=== PATIENT | female | born 2000 | race Caucasian/White ===

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

== ENCOUNTER 2023-08-21 15:00 | Emergency (ER) | payer BC, OTHER ==
[~2023-08-21] VITALS: Ht 162.6 cm; Wt 50.8 kg
[~2023-08-21 15:00] MED LIST: IBUP-1842 PO
[2023-08-21 15:13] VITALS: BP 122/85; PULSE 89; RESP 18; TEMP 98; O2SAT 100
[2023-08-21 16:54] LABS: FLU A ANTIGEN negative (NEGATIVE)
[2023-08-21 16:55] LABS: FLU B ANTIGEN NEGATIVE (NEGATIVE)
[2023-08-21 17:31] LABS: BASOPHILS % (AUTO) 0.5 % (0.0-2.0); EOSINOPHILS # (AUTO) 0.1 K/uL (0-0.4); HEMOGLOBIN 13.3 g/dL (12.0-16.0); LYMPHOCYTES # (AUTO) 2.3 K/uL (2.5-16.5); LYMPHOCYTES % (AUTO) 24.1 % (20.5-51.1); MEAN CORPUSCULAR HEMOGLOBIN 28 pg (27-31); MEAN CORPUSCULAR HGB CONC 34 g/dL (33-37); MEAN CORPUSCULAR VOLUME 83.2 fL (80-94); MONOCYTES # (AUTO) 0.7 K/uL (0.8-1.0); NEUTROPHILS # (AUTO) 6.3 K/uL (1.8-7.7); NEUTROPHILS % (AUTO) 67.4 % (42.2-75.2); PLATELET COUNT (AUTO) 85 K/uL (140-450); RED BLOOD CELL COUNT(AUTO) 4.69 MIL/uL (4.20-5.40); RED CELL DISTRIBUTION WIDTH 13.8 % (11.6-13.7); WHITE BLOOD COUNT (AUTO) 9.3 K/uL (4.8-10.8)
[2023-08-21] MEDS ORDERED: ACETAMINOPHEN EXTRA STRENGTH 500 MG TAB PO ONE (17:50)
[2023-08-21] MEDS ORDERED: NACL 0.9% 1,000 ML IV ONE (17:50)
[2023-08-21] MEDS ORDERED: KETOROLAC 30 MG/ML VIAL IM ONE (17:50)
[2023-08-21 17:53] LABS: CALCIUM 8.6 mg/dL (8.5-10.1); CARBON DIOXIDE 26.7 mmol/L (21-32); CREATININE 0.6 mg/dL (0.6-1.3); POTASSIUM 3.7 mmol/L (3.5-5.1)
[2023-08-21] MEDS ORDERED: KETOROLAC 30 MG/ML VIAL IVP ONE (18:00)
== END 2023-08-21 19:25 | disposition home or self-care (01) ==
LOC: MED 15:00
DX: R53.83 Other fatigue (principal); Z20.822 Contact with and (suspected) exposure to COVID-19; Z79.899 Other long term (current) drug therapy
CPT/HCPCS: 36415; 71045; 80048; 81025; 84443; 85025; 87426; 87804; 93005; 96361; 96374; 99285; J1885; J7030